=== PATIENT | female | born 1975 | race Caucasian/White ===

== ENCOUNTER 2016-11-15 17:18 | Emergency (ER) ==
[2016-11-15 17:34] VITALS: BP 122/81; TEMP 98.4; BMI 24.8
[2016-11-15 17:51] LABS: BASOPHILS # (AUTO) 0.1 K/uL (0-0.2); BASOPHILS % (AUTO) 0.9 % (0.0-3.0); EOSINOPHILS # (AUTO) 0.1 K/ul (0.0-0.7); EOSINOPHILS % (AUTO) 2.4 % (0.0-7.0); HEMATOCRIT 33.7 % (37.0-47.0); HEMOGLOBIN 11.5 g/dl (12.0-16.0); IMMATURE GRANULOCYTE % (AUTO) 0.2 % (0.0-5.0); LYMPHOCYTES % (AUTO) 35.3 (10.0-50.0); MEAN CORPUSCULAR HEMOGLOBIN 28.5 pg (27.0-31.0); MEAN CORPUSCULAR HGB CONC 34.1 (31.8-35.4); MEAN CORPUSCULAR VOLUME 83.4 fl (81.0-99.0); MONOCYTES # (AUTO) 0.4 K/uL (0.4-2.0); MONOCYTES % (AUTO) 6.9 (0-10); NEUTROPHILS # (AUTO) 3.1 K/ul (2.0-6.9); NEUTROPHILS % (AUTO) 54.3; PLATELET COUNT 246 10^3/uL (140-440); RED BLOOD COUNT 4.04 10^6/ul (4.20-5.40); WHITE BLOOD COUNT 5.78 K/ul (4.6-10.2)
[2016-11-15 18:11] LABS: ALANINE AMINOTRANSFERASE < 6 U/L (12-78); ALBUMIN 3.8 g/dL (3.4-5.0); ALBUMIN/GLOBULIN RATIO 1.12; ALKALINE PHOSPHATASE 57 U/L (42-98); ANION GAP 16.1; ASPARTATE AMINO TRANSFERASE 13 U/L (15-37); BLOOD UREA NITROGEN 16 mg/dL (7-18); BUN/CREATININE RATIO 16.66; CALCIUM 9.6 mg/dL (8.2-10.2); CARBON DIOXIDE 23 mmol/L (21-32); CHLORIDE 104 mmol/L (98-107); CREATININE 0.96 mg/dL (0.60-1.30); GLUCOSE 90 mg/dL (70-110); POTASSIUM 4.1 mmol/L (3.5-5.10); SODIUM 139 mmol/L (136-145); TOTAL PROTEIN 7.2 g/dL (6.4-8.2)
[2016-11-15] MEDS ORDERED: DILAUDID 1 MG/ML SYRINGE IM STA (18:30)
--- NOTE | 2016-11-15 18:35 | ED.PDOC ---
General ED Provider: Dr. DANIS VERNON Chief Complaint: Shoulder Pain/Injury Stated Complaint: chest pain posterior beetween shoulder Time Seen by Physician: 17:19 (ongoing x 2 weeks constant reproduceable negative trauma) Mode of Arrival: Walk-In Information Source: Patient Exam Limitations: No limitations Primary Care Provider: YANCI MENESES Nursing and Triage Documentation Reviewed and Agree: Yes (paola at bedside at all times ) Cardiovascular Complaint Exam - Chest Pain Complaint/Exam Onset: Gradual Duration: 14 days Symptoms Are: Still present Timing: Constant Initial Severity: Moderate Current Severity: Moderate Location: Reports: Midsternal Pain Radiates: Reports: None Character: Reports: Sharp Aggravating: Reports: Movement Alleviating: Reports: None Associated Signs and Symptoms: Denies: Diaphoresis, Nausea, Vomiting, Fever, Palpitations, Cough, Hemoptysis, Back pain, Abdominal pain, Dizziness, Short of air, Calf pain, Calf swelling Related History: Reports: Similar episode Related Surgical History: Reports: None History of Healthcare-Acquired Pneumonia: Reports: No AMI/ACS Risk Factors: Reports: None TAD Risk Factors: Reports: None Pulmonary Embolism Risk Factors: Reports: None Prior Care for this Complaint: No Recent Stress Test: No Recent Echo/LV Function: No JVD Present: No Subcutaneous Emphysema Present: No Diminshed Breath Sounds: No Reproducible Chest Wall Pain: No Bilateral Pulses Present: No Unequal Pulses Noted: No If Risk Factors for AMI/ACS Consider: EKG, Cardiac Enzymes Quality Indicators For Acute CA or Cardiac Chest Pain: EKG in 10min. Review of Systems - Review Of Systems Constitutional: Reports: No symptoms Eyes: Reports: No symptoms Ears, Nose, Mouth, Throat: Reports: No symptoms Respiratory: Reports: No symptoms Cardiac: Reports: Chest pain GI: Reports: No symptoms : Reports: No symptoms Musculoskeletal: Reports: No symptoms Skin: Reports: No symptoms Neurological: Reports: No symptoms Endocrine: Reports: No symptoms Hematologic/Lymphatic: Reports: No symptoms All Other Systems: Reviewed and Negative Past Medical History - Past Medical History Previously Healthy: Yes Endocrine: Reports: None Cardiovascular: Reports: None Respiratory: Reports: None Hematological: Reports: None Gastrointestinal: Reports: None Genitourinary: Reports: None Neuro/Psych: Reports: None Musculoskeletal: Reports: None Cancer: Reports: None Last Menstrual Period: 1 week - Surgical History General Surgical History: Reports: None - Family History Family History: Reports: None - Social History Smoking Status: Current every day smoker, Light tobacco smoker Hx Substance Use: No Alcohol Screening: None Physical Exam - Physical Exam Appearance: Well-appearing (pain is reproduceable ), No pain distress, Well- nourished Eyes: SATISH, EOMI, Conjunctiva clear ENT: Ears normal, Nose normal, Oropharynx normal Respiratory: Airway patent, Breath sounds clear, Breath sounds equal, Respirations nonlabored Cardiovascular: RRR, Pulses normal, No rub, No murmur GI/: Soft, Nontender, No masses, Bowel sounds normal, No Organomegaly Musculoskeletal: Normal strength, ROM intact, No edema, No calf tenderness Skin: Warm, Dry, Normal color Neurological: Sensation intact, Motor intact, Reflexes intact, Cranial nerves intact, Alert, Oriented Psychiatric: Affect appropriate, Mood appropriate Critical Care Note - Critical Care Note Total Time (mins): 0 Course - Course Hematology/Chemistry: 11/15/16 17:49 11/15/16 17:49 Orders, Labs, Meds: Lab Review 11/15/16 17:49 WBC 5.78 RBC 4.04 L Hgb 11.5 L Hct 33.7 L MCV 83.4 MCH 28.5 MCHC 34.1 RDW Coeff of Monik 13.6 Plt Count 246 Immature Gran % (Auto) 0.2 Neut % (Auto) 54.3 Lymph % (Auto) 35.3 [place] % (Auto) 6.9 Eos % (Auto) 2.4 Baso % (Auto) 0.9 Immature Gran # (Auto) 0.0 Neut # 3.1 Lymph # 2.0 [place] # 0.4 Eos # 0.1 Baso # 0.1 Sodium 139 Potassium 4.1 Chloride 104 Carbon Dioxide 23 Anion Gap 16.1 BUN 16 Creatinine 0.96 Estimated GFR (MDRD) 64.00 BUN/Creatinine Ratio 16.66 Glucose 90 Calcium 9.6 Total Bilirubin 0.30 AST 13 L ALT < 6 L Alkaline Phosphatase 57 Total Protein 7.2 Albumin 3.8 Globulin 3.4 Albumin/Globulin Ratio 1.12 Orders Category Date Time Status EKG-(ED ONLY) Stat CARDIO 11/15/16 18:31 Ordered NPO REMINDER: IMAGING ONCE CARE 11/15/16 17:46 Active ED IV/MEDIPORT/POWERPORT .ONCE EMERGENCY 11/15/16 17:41 Active CBC W/ AUTO DIFF Stat LAB 11/15/16 17:49 Completed COMPREHENSIVE METABOLIC PANEL Stat LAB 11/15/16 17:49 Completed 0.9 % Sodium Chloride [Saline Flush] MEDS 11/15/16 17:41 Ordered 1 syr IVF PRN PRN Hydromorphone HCl [Dilaudid 1 mg/ml Syringe] MEDS 11/15/16 18:30 Stat 0.5 mg IM ONCE STA CHEST, 2 VIEWS PA & LAT Stat RADS 11/15/16 18:31 Ordered CTA ANGIO CHEST Stat RADS 11/15/16 17:46 Ordered Medications Generic Name Dose Route Start Last Admin Trade Name Freq PRN Reason Stop Dose Admin Sodium Chloride 1 syr 11/15/16 17:41 Saline Flush IVF PRN PRN To flush IV Discontinued Medications Generic Name Dose Route Start Last Admin Trade Name Freq PRN Reason Stop Dose Admin Hydromorphone HCl 0.5 mg 11/15/16 18:30 Dilaudid 1 Mg/Ml Syringe IM 11/15/16 18:31 ONCE STA Vital Signs: Temp Pulse Resp BP Pulse Ox 11/15/16 17:19 98.4 F 68 20 122/81 98 ITA Risk Score ITA Risk Score: Risk Score Odds of by 30D 0 0.1 (0.1-0.2) 1 0.3 (0.2-0.3) 2 0.4 (0.3-0.5) 3 0.7 (0.6-0.9) 4 1.2 (1.0-1.5) 5 2.2 (1.9-2.6) 6 3.0 (2.5-3.6) 7 4.8 (3.8-6.1) Departure - Departure Time of Disposition: 18:37 (declined cta risks discussed but declined paola at bedside ) Disposition: HOME SELF-CARE Discharge Problem: Chest pain Qualifiers: Chest pain type: unspecified Qualifier Code: (R07.9) Chest pain, unspecified Instructions: Angina (ED) Condition: Good Pt referred to PMD for follow-up: Yes Additional Instructions: Please call your Family Physician as soon as possible to schedule a follow-up appointment. Allergies/Adverse Reactions: Allergies contrast dye Adverse Reaction (Uncoded 11/15/16 17:29) Home Medications: Ambulatory Orders Levothyroxine Sodium [Synthroid] 150 mcg PO DAILY 11/15/16
--- NOTE | 2016-11-15 18:52 | DI ---
EXAM: Two views of the chest. History: Chest pain. Findings: Heart size is normal. No focal consolidation. No appreciable pleural fluid and no pneum othorax. No acute osseous abnormalities. Impression: No acute cardiopulmonary process.
== END 2016-11-15 19:26 | disposition home or self-care (01) ==
LOC: ED 17:18
DX: R07.9 Chest pain, unspecified (principal); F17.210 Nicotine dependence, cigarettes, uncomplicated
CPT/HCPCS: 36415; 80053; 85025; 93005; 93010; 96372; 99283

== ENCOUNTER 2017-11-25 08:13 | Outpatient (CLI) ==
--- NOTE | 2017-11-25 08:51 | US ---
EXAM: Ultrasound retroperitoneal complete. HISTORY: Decreased kidney function. COMPARISON: None available. TECHNIQUE: Multiple rosa scale and color Doppler images. FINDINGS: Right kidney measures 10.1 x 4.1 x 4.7 cm. The left kidney measures 11.2 x 5.7 x 4.5 cm. Corticomedullary differentiation in both kidneys is normal. There is no hydronephrosis. Urinary bladder is unremarkable. IMPRESSION: No sonographic abnormality of the kidneys or bladder.
== END 2017-11-25 08:14 | disposition home or self-care (01) ==
LOC: RAD 08:13
PROVIDERS: ATTEND Family Medicine
DX: N28.9 Disorder of kidney and ureter, unspecified (principal)